=== PATIENT | female | born 1995 | race Two or more races ===

== ENCOUNTER 2025-03-31 09:45 | Outpatient (REF) | payer MEDICAID, SELFPAY ==
[2025-03-31 12:28] LABS: Alanine Aminotransferase 21 U/L (0-31); Albumin Level 4.5 g/dL (3.5-5.0); Alkaline Phosphatase 47 U/L (39-117); Anion Gap 11 (12-20); Aspartate Amino Transferase 21 U/L (5-31); Blood Urea Nitrogen 16 mg/dL (9-16); Calcium 9.1 mg/dL (8.4-10.2); Carbon Dioxide 22 mmol/L (22-29); Chloride 110 mmol/L (96-108); Cholesterol 340 mg/dL (<200); Estimated Glomerular Filt Rate > 60; HDL Cholesterol 74 mg/dL (>40); Potassium 3.7 mmol/L (3.3-5.1); Sodium 139 mmol/L (135-145); Total Protein 7.4 g/dL (6.5-8.0); Triglycerides 92 mg/dL (<150)
== END 2025-03-31 09:46 | disposition home or self-care (01) ==
LOC: HO.HHCL 09:45
PROVIDERS: PCP Nurse Practitioner Family; Visit Provider Nurse Practitioner Family
DX: Z00.00 Encounter for general adult medical examination without abnormal findings (principal)
CPT/HCPCS: 36415; 80053; 80061; 83036